=== PATIENT | female | born 1980 | race Caucasian/White ===

== ENCOUNTER 2021-01-05 15:28 | Outpatient (REF) | payer OTHER, SELFPAY | END 2021-01-05 15:29 | disposition home or self-care (01) | LOC: HO.LAB 15:28 | PROVIDERS: Visit Provider Internal Medicine | DX: Z12.4 Encounter for screening for malignant neoplasm of cervix (principal) | CPT/HCPCS: 88142 ==

== ENCOUNTER 2023-01-18 08:34 | Outpatient (REF) | payer OTHER, SELFPAY ==
--- NOTE | ~2023-01-18 | MM_ITS ---
EXAMINATION: MM SCREENING DIGITAL BREAST TOMOSYNTHESIS, BILATERAL CLINICAL INFORMATION: Screening. Asymptomatic. No prior breast imaging. Age 42. Family history breast cancer, maternal grandmother. The lifetime risk of breast cancer based on the Tyrer-Cuzick Model is 19.4%. COMPARISON: None (current study represents initial baseline exam). TECHNIQUE: Digital breast tomosynthesis is performed in both the craniocaudal and mediolateral oblique views along with computer-aided detection (CAD). Synthesized 2D images are generated from the tomosynthesis. FINDINGS: There are scattered areas of fibroglandular density (ACR BI-RADS breast composition Category b). Breast tissue composition borders on heterogeneously dense. There is no significant mass and no architectural abnormality. Incidental low left axillary tail node present on MLO view. The axilla and skin contours are unremarkable. No abnormal calcifications on right. There are a few punctate calcifications anterior upper left breast along with probable digital processing pseudo calcification artifact on the synthesized images. As this represents initial baseline exam, patient will be recalled for additional magnification views on the left to fully characterize. MM/MM tomosynthesis screening BI IMPRESSION: Left: -Calcifications versus pseudocalcification digital processing artifact anterior upper breast. Right: -No mammographic evidence of malignancy. ASSESSMENT: BI-RADS 0: Incomplete - Need Additional Imaging Evaluation RECOMMENDATION: 1. Additional views left breast (magnification CC, magnification ML). 2. Radiology department staff will contact the patient for additional imaging. This patient's information was entered into a reminder system with a target due date for their next mammogram.
== END 2023-01-18 08:35 | disposition home or self-care (01) ==
LOC: HO.MAMMO 08:34
PROVIDERS: PCP Internal Medicine; Visit Provider Internal Medicine
DX: Z12.31 Encounter for screening mammogram for malignant neoplasm of breast (principal)
CPT/HCPCS: 77063; 77067

== ENCOUNTER 2023-03-26 14:29 | Outpatient (REF) | payer OTHER, SELFPAY ==
--- NOTE | ~2023-03-26 | MM_ITS ---
EXAMINATION: MM DIAGNOSTIC DIGITAL MAMMOGRAPHY, left breast CLINICAL INFORMATION: Evaluate calcifications anterior superior left breast seen on baseline screening exam COMPARISON: Mammography: Baseline screening mammography 01/18/2023. TECHNIQUE: Digital mammography is performed in the following views: CC and medial lateral left-sided magnification views. FINDINGS: There are scattered areas of fibroglandular density (ACR BI-RADS breast composition Category b). On the left magnification views, a group of microcalcifications in the approximate 1:00 location, anterior depth, appear loosely grouped, and several appear to layer on the MLO projection, suggesting milk of calcium. These findings are probably benign. Six-month follow-up advised. Results are provided to the patient at time of visit by the technologist. MM/MM added views LT IMPRESSION: Probably benign milk of calcium anterior left breast 1:00 location, for which 6 month follow-up magnification views recommended. ASSESSMENT: BI-RADS BI-RADS 3 - Probably benign finding(s) - 6 month follow-up suggested RECOMMENDATION: 6 Month F/U This patient's information was entered into a reminder system with a target due date for their next mammogram.
== END 2023-03-26 14:30 | disposition home or self-care (01) ==
LOC: HO.MAMMO 14:29
PROVIDERS: PCP Internal Medicine; Visit Provider Internal Medicine
DX: R92.1 Mammographic calcification found on diagnostic imaging of breast (principal)
CPT/HCPCS: 77065

== ENCOUNTER → 2023-03-26 14:30 | Outpatient (BNV) | payer OTHER, SELFPAY | PROVIDERS: PCP Internal Medicine; Visit Provider Radiology Diagnostic Radiology | DX: R92.8 Other abnormal and inconclusive findings on diagnostic imaging of breast (principal) | CPT/HCPCS: 77061; 77065 ==

== ENCOUNTER 2023-10-13 14:54 | Outpatient (REF) | payer OTHER, SELFPAY ==
--- NOTE | ~2023-10-13 | MM_ITS ---
EXAMINATION: MM DIAGNOSTIC DIGITAL BREAST TOMOSYNTHESIS, LEFT CLINICAL INFORMATION: 6 month Follow-up probably benign left breast calcifications COMPARISON: Mammography: Bilateral mammography 01/18/2023, left diagnostic mammography 03/26/2023. TECHNIQUE: Digital left breast tomosynthesis is performed in both the craniocaudal and mediolateral oblique views along with computer-aided detection (CAD). Synthesized 2D images are generated from the tomosynthesis. In addition, 2-D spot magnification views in the left CC and ML projections were obtained. FINDINGS: There are scattered areas of fibroglandular density (ACR BI-RADS breast composition Category b). Redemonstration of a group of microcalcifications in the approximate 1:00 axis, anterior depth, of the left breast. On the ML projection, all of these calcifications appear to layer or teacup, and are consistent with benign milk of calcium. There are no suspicious calcifications identified. Otherwise, the parenchymal pattern is overall unchanged within the left breast. No masses, regions of architectural distortion, or new regions of calcifications are evident. There are no axillary or skin changes. MM/MM tomosynthesis diagnostic LT IMPRESSION: Calcifications in the upper left breast 1:00 axis, anterior one third, are benign consistent with benign milk of calcium. No further follow-up recommended. There are no findings in the left breast suspicious for malignancy. Recommend the patient return to routine annual bilateral screening in 6 months. ASSESSMENT: BI-RADS BI-RADS 2 - Benign Findings RECOMMENDATION: 1 year F/U Results were provided to the patient at time of visit by the technologist. This patient's information was entered into a reminder system with a target due date for their next mammogram.
== END 2023-10-13 14:55 | disposition home or self-care (01) ==
LOC: HO.MAMMO 14:54
PROVIDERS: PCP Internal Medicine; Visit Provider Internal Medicine
DX: R92.1 Mammographic calcification found on diagnostic imaging of breast (principal)
CPT/HCPCS: 77061; 77065

== ENCOUNTER → 2023-10-13 15:00 | Outpatient (BNV) | payer OTHER, SELFPAY | PROVIDERS: PCP Internal Medicine; Visit Provider Radiology Diagnostic Radiology | DX: R92.1 Mammographic calcification found on diagnostic imaging of breast (principal) | CPT/HCPCS: 77061; 77065 ==

== ENCOUNTER 2023-12-10 11:28 | Outpatient (AMB) | payer OTHER, SELFPAY ==
--- NOTE | 2023-12-10 11:54 | MHC.PC.OV ---
Vital Signs 12/10/23 11:55 Height 5 ft 7 in Weight 225 lb BMI 35.2 BP 100/66 Blood Pressure Location Lt brachial Position Sitting Pulse 84 Pulse Source Pulse Oximeter Pulse Oximetry (%) 99 Oxygen Delivery Method Room Air Intake Visit Reasons: PE Intake Note: Pt is here today for her PE Is last menstrual period known: Yes Last menstrual period: 12/02/23 Allergies No Known Allergies Allergy (Verified 12/10/23 11:56) Medication List - Last Reconciled 12/10/23 by Juana Moe MD semaglutide (weight loss) (Wegovy) 2.4 mg subcut QWEEK Tobacco use date assessed: 12/10/23 Dental Screening Dental Screen Date: 12/10/23 Did you have a dental visit in the last 12 months?: No Was dental information given to patient?: Patient has dentist HPI PE HPI Details Patient presents for a physical. She complains of discomfort during intercourse and while placing a tampon in for the last few months. Patient denies spotting after intercourse or vaginal discharge PFSH Medical History Annual physical exam Overweight Surgical History S/P cholecystectomy Family History Unknown Adopted Social History Household Members Other:: , 5 adult stepchildren ,works from home Housing: House Alcohol intake: current Alcohol intake frequency: holidays/special occasions only Patient Tobacco Use Status: Never used Tobacco e-Cigarette/Vaping Use: Never Used Current occupational status: employed Cognitive needs: No Hearing needs: No Vision needs: No Female Reproductive History Menstrual Date of last menstrual period: 12/02/23 Questionnaire PHQ-9 Over the last 2 weeks, how often have you been bothered by any of the following problems? 1. Little interest or pleasure in doing things: not at all 2. Feeling down, depressed, or hopeless: not at all 3. Trouble falling or staying asleep, or sleeping too much: not at all 4. Feeling tired or having little energy: not at all 5. Poor appetite or overeating: not at all 6. Feeling bad about yourself - or that you are a failure or have let yourself or your family down: not at all 7. Trouble concentrating on things, such as reading the newspaper or watching television: not at all 8. Moving or speaking so slowly that other people could have noticed. Or the opposite - being so fidgety or restless that you have been moving around a lot more than usual: not at all 9. Thoughts that you would be better off or of hurting yourself in some way: not at all Total score: 0 Depression Screening Interpretation: Negative Depression Screening Done: Yes [id number] - PHQ-9 Billing: Yes Source: Developed by Drs. Lionel Valles, Tashia Juarez, Adalberto Beckman and colleagues, with an educational flavia from [employer]. Thrive Questionnaire Date Thrive assessed: 12/10/23 I am a: Patient What is your living situation today?: I have a steady place to live Within the past 12 months, did the food you bought not last and you didn't have the money to get more?: Never true Within the past 12 months, did you worry whether your food would run out before you got money to buy more?: Never true Do you have trouble paying for medicines?: No Do you have trouble getting transportation to medical appointments?: No Do you have trouble paying your heating and electricity bill?: No Do you have trouble taking care of your child, family member or friend?: No Do you have trouble with day-to-day activities such as bathing, preparing meals, shopping, managing finances, etc.?: No Are you currently unemployed and looking for a job?: No Are you interested in more education?: No THRIVE Score: 0 AUDIT C Alcohol Use Questionnaire (AUDIT-C) 1. How often do you have a drink containing alcohol?: Monthly or less 2. How many drinks containing alcohol do you have on a typical day when you are drinking?: 1 or 2 3. How often do you have six or more drinks on one occasion?: Never Total Score: 1 NAZANIN-7 AMB Questionnaire NAZANIN-7 Date NAZANIN - 7 assessed: 12/10/23 Feeling nervous, anxious, or on edge: 0 = Not at all Not being able to stop or control worryin = Not at all Worrying too much about different things: 0 = Not at all Trouble relaxin = Not at all Being so restless that it is hard to sit still: 0 = Not at all Becoming easily annoyed or irritable: 0 = Not at all Feeling afraid as if something awful might happen: 0 = Not at all Total NAZANIN-7 score (0-4 normal; 5-9 mild; 10-14 moderate; 15-21 severe): 0 Source: Developed by Drs. Lionel Valles, Tashia Juarez, Adalberto Beckman and colleagues, with an educational flavia from [employer]. Review of Systems Const All systems reviewed & are unremarkable except as noted in HPI and below Eyes Reports no additional complaints ENT Reports no additional complaints Card Reports no additional complaints Resp Reports no additional complaints GI Reports no additional complaints Physical exam (Primary Care) Vital Signs: Last Vital Signs Pulse 84 12/10/23 11:55 BP 100/66 12/10/23 11:55 Pulse Ox 99 12/10/23 11:55 Oxygen Delivery Method Room Air 12/10/23 11:55 BMI result Body Mass Index 35.2 Tobacco/Smoking Status: Tobacco use Status Tobacco use date assessed 12/10/23 12/10/23 12:00 Patient Tobacco Use Status Never used Tobacco 12/10/23 12:00 e-Cigarette/Vaping Use Never Used 12/10/23 12:00 PHQ-9: PHQ-9 Score PHQ-9: Total score 0 12/10/23 12:23 Depression Screening Interpretation: Negative Thrive Assessment: Date of Thrive Assessment Date Thrive assessed 12/10/23 12/10/23 12:00 Const General: no acute distress HENMT Head: Yes normal to inspection Face and sinus: Yes normal facial exam Mouth: Normal oral and palatal mucosa present Eyes General: appearance normal, both eyes and all related structures Neck Neck: Yes no lymphadenopathy and Yes supple Resp Effort & Inspection: normal respiratory effort Auscultation: clear to auscultation bilaterally Cardio Rhythm: regular rhythm Heart sounds: S1 normal heart sound present and S2 normal heart sound present GI Inspection: Yes normal to inspection Palpation (GI): Soft to palpation Percussion: Yes normal to percussion Auscultation: normal bowel sounds Speculum Exam - Vagina: normal appearance of the vagina Speculum Exam - Cervix: normal appearance of the cervix Bimanual exam- vagina & uterus: normal bimanual exam Assessment and Plan Assessment & Plan (1) Annual physical exam: Code(s): Z00.00 - Encounter for general adult medical examination without abnormal findings Plan: Well-balanced diet regular physical activity weight loss discussed with the patient. She will return for fasting blood work. Patient is up-to-date with the mammogram. Pap smear was done and pelvic ultrasound will be obtained to evaluate for uterine fibroids/ovarian cysts Orders: Orders Comprehensive [place]. Panel Fast Today R10.2 - Pelvic and perineal pain, Z00.00 - Encounter for general adult medical examination without abnormal findings Lipid Panel Today R10.2 - Pelvic and perineal pain, Z00.00 - Encounter for general adult medical examination without abnormal findings UA w Microscopic Today R10.2 - Pelvic and perineal pain, Z00.00 - Encounter for general adult medical examination without abnormal findings US pelvic and transvaginal Today R10.2 - Pelvic and perineal pain, Z00.00 - Encounter for general adult medical examination without abnormal findings Pap Smear Today Z00.00 - Encounter for general adult medical examination without abnormal findings Complete Blood Count Auto Diff Today R10.2 - Pelvic and perineal pain, Z00.00 - Encounter for general adult medical examination without abnormal findings TSH reflex Free T4 Today R10.2 - Pelvic and perineal pain, Z00.00 - Encounter for general adult medical examination without abnormal findings Coding Level of Care Code Est Pt Prev Care 40-64y(86925) Diagnoses Annual physical exam Z00.00
[2023-12-10 11:55] VITALS: BP 100/66; PULSE 84; O2SAT 99; BMI 35.2
== END 2023-12-10 12:37 | disposition home or self-care (01) ==
PROVIDERS: PCP Internal Medicine; Visit Provider Internal Medicine
DX: Z00.00 Encounter for general adult medical examination without abnormal findings (principal)
CPT/HCPCS: 99396

== ENCOUNTER 2023-12-10 12:39 | Outpatient (REF) | payer OTHER, SELFPAY ==
[2023-12-16 06:49] LABS: HPV mRNA E6/E7 Not Detected (Not Detected)
== END 2023-12-10 12:40 | disposition home or self-care (01) ==
LOC: HO.LNP 12:39
PROVIDERS: Visit Provider Internal Medicine
DX: Z01.419 Encounter for gynecological examination (general) (routine) without abnormal findings (principal); R10.2 Pelvic and perineal pain
CPT/HCPCS: 87624; 88142

== ENCOUNTER 2023-12-23 13:11 | Outpatient (REF) | payer OTHER, SELFPAY ==
--- NOTE | ~2023-12-23 | US_ITS ---
EXAMINATION: US PELVIS CLINICAL INFORMATION: Pelvic pain, last menstrual period 12/02/2023. COMPARISON: None available. TECHNIQUE: Ultrasound of the pelvis is performed using both transabdominal and transvaginal transducers along with Doppler. Transvaginal imaging is performed due to inadequate visualization transabdominally. FINDINGS: Uterus is anteverted and measures 8.3 x 4.1 x 5.7 cm, volume 101.4 mm. Endometrial thickness is 10 mm. Trace amount of fluid within the endometrial cavity. Small amount of free fluid. Limited visualization of the bilateral ovaries due to bowel gas, body habitus and fibroid uterus. The ovaries were seen only on transabdominal ultrasound images. Right ovary measures 3.1 x 1.6 x 1.6 cm, volume 4.2 mL and left ovary 2.7 x 1.7 x 2.3 cm, volume 5.5 mL. 2.2 x 2.2 x 2.3 cm uterine mass characteristic of a fibroid. 1.4 x 1.6 x 1.4 cm uterine mass with echogenic foci characteristic of coarse calcifications with a uterine fibroid. 2.2 x 2.2 x 2.3 cm heterogeneous uterine mass characteristic of a fibroid. Visualization of uterus and endometrium are limited due to fibroids and bowel gas. US/US pelvic and transvaginal IMPRESSION: 1. Echogenic endometrium with thickness of 10 mm and possible trace amount of fluid within the endometrial cavity. 2. Uterine masses with an enlarged uterus, characteristic of fibroids. 3. Limited visualization of the bilateral ovaries.
== END 2023-12-23 13:12 | disposition home or self-care (01) ==
LOC: HO.US 13:11
PROVIDERS: PCP Internal Medicine; Visit Provider Internal Medicine
DX: R10.2 Pelvic and perineal pain (principal)
CPT/HCPCS: 76830; 76856

== ENCOUNTER 2024-03-16 07:27 | Outpatient (REF) | payer OTHER, SELFPAY ==
[2024-03-16 08:28] LABS: Hematocrit 39.6 % (37.0-47.0); Hemoglobin 13.4 g/dl (12.0-16.0); Mean Corpuscular HGB Conc 33.8 g/dl (31.0-35.0); Mean Corpuscular Volume 91.7 fL (80.0-98.0); Platelet Count 317 X10*3/uL (160-400); Red Blood Count 4.32 X10*6/uL (4.20-5.50); Red Cell Distribution Width 12.1 % (11.0-16.0); White Blood Count 7.1 X10*3/uL (4.8-10.8)
[2024-03-16 09:51] LABS: HCG Quantitative < 2 mIU/mL; TSH reflex Free T4 0.69 uIU/mL (0.32-4.0)
[2024-03-16 17:12] LABS: CT PCR NOT DETECTED (Not Detect.); NG PCR NOT DETECTED (Not Detect.)
[2024-03-17 08:13] LABS: Follicle Stimulating Hormone 4.5 mIU/mL; Lutenizing Hormone 3.9 mIU/mL; Prolactin 15.6 ng/mL
== END 2024-03-16 07:28 | disposition home or self-care (01) ==
LOC: HO.LAB 07:27
PROVIDERS: PCP Internal Medicine; Visit Provider Obstetrics & Gynecology
DX: N93.9 Abnormal uterine and vaginal bleeding, unspecified (principal); D25.9 Leiomyoma of uterus, unspecified
CPT/HCPCS: 36415; 83001; 83002; 84146; 84443; 84702; 85027; 87491; 87591

== ENCOUNTER 2024-03-16 07:27 | Outpatient (AMB) | payer OTHER, SELFPAY ==
[2024-03-16 07:33] VITALS: BP 118/68; BMI 35.2
--- NOTE | 2024-03-16 07:33 | A.OFFVIS_ITS ---
Vital Signs 03/16/24 07:33 Height 5 ft 7 in Weight 225 lb BMI 35.2 BP 118/68 Intake Visit Reasons: New patient Annual Intake Note: no concerns Scientific Advisor Required: No Information Interpreted: non-clinical & clinical President Ceo & Founder: President Ceo & Founder Present (Candis PRADO) Accompanied by: Self / Same As Patient Allergies No Known Allergies Allergy (Verified 03/16/24 07:40) Is last menstrual period known: Yes Last menstrual period: 02/17/24 HPI Comments Details: Presenting referred from PCP regarding myoma seen on recent pelvic ultrasound. The patient is complaining of heavy menstrual cycles associated passage of blood clots no pelvic pain and/ or pressure Last Pap/HPV was negative in 12/09 Last Mammogram was BI-RADS 2 in 10/11 Pelvic ultrasound done in 01/08 showed the following: Uterus is anteverted and measures 8.3 x 4.1 x 5.7 cm, volume 101.4 mm. Endometrial thickness is 10 mm. Trace amount of fluid within the endometrial cavity. Small amount of free fluid. Limited visualization of the bilateral ovaries due to bowel gas, body habitus and fibroid uterus. The ovaries were seen only on transabdominal ultrasound images. Right ovary measures 3.1 x 1.6 x 1.6 cm, volume 4.2 mL and left ovary 2.7 x 1.7 x 2.3 cm, volume 5.5 mL. 2.2 x 2.2 x 2.3 cm uterine mass characteristic of a fibroid. 1.4 x 1.6 x 1.4 cm uterine mass with echogenic foci characteristic of coarse calcifications with a uterine fibroid. 2.2 x 2.2 x 2.3 cm heterogeneous uterine mass characteristic of a fibroid. Visualization of uterus and endometrium are limited due to fibroids and bowel gas. [facility] Medical History Annual physical exam Overweight Surgical History S/P cholecystectomy Family History Unknown Adopted Social History Household Members Other:: , 5 adult stepchildren ,works from home Housing: House Alcohol intake: current Alcohol intake frequency: holidays/special occasions only Patient Tobacco Use Status: Never used Tobacco e-Cigarette/Vaping Use: Never Used Current occupational status: employed Cognitive needs: No Hearing needs: No Vision needs: No Female Reproductive History Menstrual Date of last menstrual period: 02/17/24 control method: none Total pregnancies: 0 Date of last pap smear: 12/12/23 Date of Mammogram: 01/18/23 Review of Systems Const All systems reviewed & are unremarkable except as noted in HPI and below Card Reports as per HPI Resp Reports as per HPI GI Reports as per HPI and Reports no additional complaints Reports as per HPI Physical Exam Vital Signs: Last Vital Signs BP 118/68 03/16/24 07:33 BMI result Body Mass Index 35.2 Const General: cooperative, healthy appearing and comfortable Chest Chest palpation & inspection: normal inspection of the chest and normal palpation of entire chest wall Breast/axilla inspection: normal inspection of the breasts and normal inspection of the axillae Breast/axilla palpation: normal palpation of the breasts, normal palpation of the axillae and no axillary lymphadenopathy Resp Effort & Inspection: normal respiratory effort Auscultation: clear to auscultation bilaterally Percussion: percussion normal Cardio Palpation: normal PMI Rate: regular rate Rhythm: regular rhythm Heart sounds: no murmurs and no rubs Peripheral pulses: Peripheral pulses 2+ throughout GI Inspection: Yes normal to inspection Palpation (GI): Soft to palpation, nontender, no guarding, not rigid and No hepatosplenomegaly present Percussion: Yes normal to percussion Auscultation: normal bowel sounds Rectal Exam - Female: deferred General: Yes bladder normal to palpation External Female Exam: No lesion Speculum Exam - Vagina: normal appearance of the vagina, normal palpation, normal vaginal discharge and not erythematous Speculum Exam - Cervix: normal appearance of the cervix and normal palpation Bimanual exam- vagina & uterus: normal bimanual exam, normal palpation, uterine size normal, bladder normal to palpation, consistency normal and normal palpation Bimanual Exam- Adnexa, other: normal adnexae, no masses and no tenderness Assessment & Plan Assessment & Plan (1) Abnormal uterine bleeding (AUB): Code(s): N93.9 - Abnormal uterine and vaginal bleeding, unspecified Category: Medical Plan: GC and chlamydia taken CBC, TSH, prolactin, FSH/LH HCG ordered. Discussed with the patient the different causes of abnormal bleeding including thyroid disorders, uterine and ovarian pathology, endometrial hyperplasia, carcinoma and other potential causes. Discussed with the patient the work up including CBC (to r/o anemia), TSH, prolactin, FSH/LH, endometrial biopsy to r/o endometrial pathology. All questions answered and the patient verbalized understanding. Instructed the patient to schedule an appointment for an endometrial biopsy in 2 weeks. (2) Uterine fibroid: Code(s): D25.9 - Leiomyoma of uterus, unspecified Category: Medical Plan: Discussed with the patient the results of the ultrasound and the size of the myomas. Discussed with the patient risk of myosarcoma and symptoms that are caused by myomas including but not limited to pelvic pain, pressure symptoms, abnormal uterine bleeding. In addition discussed with the patient options of treatment for myomas including: Serial ultrasounds periodically to follow-up on the size of the myoma while targeting the treatment against fibroids related symptoms ( control pills, Mirena IUD, progesterone treatment, GnRH agonist/antagonist, uterine artery embolization or endometrial ablation) versus surgical treatment including hysterectomy and or myomectomy. All pros and cons, risks and benefits of all options were discussed with the patient. The patient understands that delay in surgical treatment in case of myosarcoma can affect her prognosis, after further discussion, the patient decided to think about it and get back to us next visit Orders: Orders TSH reflex Free T4 Today N93.9 - Abnormal uterine and vaginal bleeding, unspecified Lutenizing Hormone Today N93.9 - Abnormal uterine and vaginal bleeding, unspecified Prolactin Today N93.9 - Abnormal uterine and vaginal bleeding, unspecified HCG Quantitative Today N93.9 - Abnormal uterine and vaginal bleeding, unspe cified Follicle Stimulating Hormone Today N93.9 - Abnormal uterine and vaginal bleeding, unspecified Complete Blood Count no Diff Today N93.9 - Abnormal uterine and vaginal bleeding, unspecified Coding Level of Care Code New Pt Level 3 (11906) Diagnoses Abnormal uterine bleeding (AUB) N93.9 Uterine fibroid D25.9
== END 2024-03-16 08:06 | disposition home or self-care (01) ==
PROVIDERS: PCP Internal Medicine; Visit Provider Obstetrics & Gynecology
DX: N93.9 Abnormal uterine and vaginal bleeding, unspecified (principal); D25.9 Leiomyoma of uterus, unspecified
CPT/HCPCS: 99203

== ENCOUNTER 2024-03-16 08:21 | Outpatient (REF) | payer OTHER, SELFPAY | END 2024-03-16 08:22 | disposition home or self-care (01) | LOC: HO.LNP 08:21 | PROVIDERS: Visit Provider Obstetrics & Gynecology | DX: Z13.89 Encounter for screening for other disorder (principal) ==

== ENCOUNTER 2024-04-28 07:25 | Outpatient (AMB) | payer OTHER, SELFPAY ==
[2024-04-28 07:25] VITALS: BP 122/84; BMI 35.2
--- NOTE | 2024-04-28 07:25 | A.OFFVIS_ITS ---
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 Information Interpreted: non-clinical & clinical Health Care Attorney: Health Care Attorney Present (Candis Perkins JOHAN) Accompanied by: Self / Same As Patient Allergies No Known Allergies Allergy (Verified 04/28/24 07:31) Is last menstrual period known: Yes Last menstrual period: 04/22/24 HPI Comments Details: Presenting for EMB [facility] Medical History Annual physical exam Overweight Surgical History S/P cholecystectomy Family History Unknown Adopted Social History Household Members Other:: , 5 adult stepchildren ,works from home Housing: House Alcohol intake: current Alcohol intake frequency: holidays/special occasions only Patient Tobacco Use Status: Never used Tobacco e-Cigarette/Vaping Use: Never Used Current occupational status: employed Cognitive needs: No Hearing needs: No Vision needs: No Female Reproductive History Menstrual Date of last menstrual period: 04/22/24 Review of Systems Const All systems reviewed & are unremarkable except as noted in HPI and below Reports as per HPI and Reports no additional complaints GI Reports no additional complaints Reports no additional complaints Physical Exam Vital Signs: Last Vital Signs BP 122/84 04/28/24 07:25 BMI result Body Mass Index 35.2 Office Procedures Endometrial Biopsy Details: The patient was counseled regarding the indication and benefits of endometrial sampling to rule out endometrial pathology including not limited to endometrial hyperplasia or endometrial cancer and others; The alternatives (Either do nothing vs. hysteroscopy D&C) & the risks were discussed with the patient including but not limited: pain, uterine perforation, bleeding, infection, possible injury to bladder, bowel, ureter, possible need for blood transfusion with all its possible risks. The patient verbalized understanding all questions answered and signed consent. Urine test done in the office was negative The patient was placed into the dorsal lithotomy position; a speculum was inserted in the vagina. Using aseptic technique for the procedure, the cervix was cleansed with Betadine. The anterior lip of the cervix was grasped with a single tooth tenaculum. The uterus was sounded to 7 cm with a 4 mm Pipelle was used. Tissues samples were obtained and placed in formalin, in a patient labeled container and sent to the pathology department. At the end of the procedure, there was minimal bleeding noted The patient tolerated the procedure well and was discharged in good condition with the following instructions: Nothing in the vagina until the bleeding stops. No sex until the bleeding stops, to call if any of the following occurs: fever (>100.4), flu-like symptoms, abdominal pain, heavy bleeding, four smelling vaginal discharge. The patient was instructed to schedule a Follow up appointment in 2 weeks to discuss pathology results of the biopsy and treatment options. This note was generated with a voice recognition program. Some errors may have been overlooked during the review of this note. Sometimes these errors may affect the content or meaning of a given sentence. [address]-[place] Biopsy Results AMB Test Urine AMB Test Urine Negative Last Edit by Candis Perkins CMA on 07:33 Assessment & Plan Assessment & Plan (1) Abnormal uterine bleeding (AUB): Code(s): N93.9 - Abnormal uterine and vaginal bleeding, unspecified Category: Medical Plan: EMB done, see procedure Orders: Orders AMB HCG Urine Test Today Z32.02 - Encounter for test, result negative AMB Endometrial Biopsy Today N93.9 - Abnormal uterine and vaginal bleeding, unspecified Coding Level of Care Code Procedure Only Diagnoses Abnormal uterine bleeding (AUB) N93.9 CPT Codes Endometrial Biopsy - CPT: 20981-Nrtymtualme Biopsy ([id number])
== END 2024-04-28 07:50 | disposition home or self-care (01) ==
LOC: HO.HWS 07:25
PROVIDERS: PCP Internal Medicine; Visit Provider Obstetrics & Gynecology
DX: N93.9 Abnormal uterine and vaginal bleeding, unspecified (principal); Z32.02 Encounter for pregnancy test, result negative
CPT/HCPCS: 58100

== ENCOUNTER 2024-04-28 07:25 | Outpatient (REF) | payer OTHER, SELFPAY | END 2024-04-28 07:26 | disposition home or self-care (01) | LOC: HO.LNP 07:25 | PROVIDERS: PCP Internal Medicine; Visit Provider Obstetrics & Gynecology | DX: N93.9 Abnormal uterine and vaginal bleeding, unspecified (principal); Z32.02 Encounter for pregnancy test, result negative | CPT/HCPCS: 58100; 81025; 88305 ==

== ENCOUNTER 2024-06-15 07:57 | Outpatient (AMB) | payer OTHER, SELFPAY ==
[2024-06-15 07:58] VITALS: BP 110/76; BMI 35.1
--- NOTE | 2024-06-15 07:58 | A.OFFVIS_ITS ---
Vital Signs 06/15/24 07:58 Height 5 ft 7 in Weight 224 lb BMI 35.1 BP 110/76 Blood Pressure Location Lt brachial Position Sitting Intake Visit Reasons: EMB results Allergies No Known Allergies Allergy (Verified 06/15/24 07:58) HPI Comments Details: The patient is presenting for follow-up to discuss the results of her abnormal uterine bleeding workup and options of treatment. The following workup was done.: H&H=13.4/39.6 TSH, hCG, prolactin, GC and chlamydia were negative. Endometrial biopsy pathology showed the following: Endometrium, biopsy: Benign weakly proliferative endometrium with focal breakdown, and benign endocervical glandular and scant squamous epithelium; no atypia or carcinoma. Mammogram was done in 10/11 was BI-RADS 2 Pelvic ultrasound showed the following: Uterus is anteverted and measures 8.3 x 4.1 x 5.7 cm, volume 101.4 mm. Endometrial thickness is 10 mm. Trace amount of fluid within the endometrial cavity. Small amount of free fluid. Limited visualization of the bilateral ovaries due to bowel gas, body habitus and fibroid uterus. The ovaries were seen only on transabdominal ultrasound images. Right ovary measures 3.1 x 1.6 x 1.6 cm, volume 4.2 mL and left ovary 2.7 x 1.7 x 2.3 cm, volume 5.5 mL. 2.2 x 2.2 x 2.3 cm uterine mass characteristic of a fibroid. 1.4 x 1.6 x 1.4 cm uterine mass with echogenic foci characteristic of coarse calcifications with a uterine fibroid. 2.2 x 2.2 x 2.3 cm heterogeneous uterine mass characteristic of a fibroid. Visualization of uterus and endometrium are limited due to fibroids and bowel gas. [facility] Medical History Annual physical exam Overweight Surgical History S/P cholecystectomy Family History Unknown Adopted Social History Household Members Other:: , 5 adult stepchildren ,works from home Housing: House Alcohol intake: current Alcohol intake frequency: holidays/special occasions only Patient Tobacco Use Status: Never used Tobacco e-Cigarette/Vaping Use: Never Used Current occupational status: employed Cognitive needs: No Hearing needs: No Vision needs: No Review of Systems Const All systems reviewed & are unremarkable except as noted in HPI and below Reports as per HPI and Reports no additional complaints GI Reports no additional complaints Reports no additional complaints Physical Exam Vital Signs: Last Vital Signs BP 110/76 06/15/24 07:58 BMI result Body Mass Index 35.1 Assessment & Plan Assessment & Plan (1) Abnormal uterine bleeding (AUB): Comment: Uterine myomas Code(s): N93.9 - Abnormal uterine and vaginal bleeding, unspecified Category: Medical Plan: Discussed with the patient the results of the ultrasound and the size of the myomas. Discussed with the patient risk of myosarcoma and symptoms that are caused by myomas including but not limited to pelvic pain, pressure symptoms, abnormal uterine bleeding. In addition discussed with the patient options of treatment for myomas including: Serial ultrasounds periodically to follow-up on the size of the myoma while targeting the treatment against fibroids related symptoms ( control pills, Mirena IUD, progesterone treatment, GnRH agonist/antagonist, uterine artery embolization or endometrial ablation) versus surgical treatment including hysterectomy and or myomectomy. All pros and cons, risks and benefits of all options were discussed with the patient. The patient understands that delay in surgical treatment in case of myosarcoma can affect her prognosis, after further discussion, the patient decided to proceed with expectant management (2) Uterine fibroid: Code(s): D25.9 - Leiomyoma of uterus, unspecified Category: Medical Plan: Discussed with the patient the findings on pelvic ultrasound & the risk of myosarcoma; discussed with the patient the options of treatment including expectant management versus hysterectomy; the pros and cons, risks benefits of each approach were discussed with the patient including the fact that in cases of myosarcoma, surgical treatment can lead to early diagnosis and positively affects the prognosis; after further discussion, the patient decided to proceed with expectant management. Will repeat pelvic ultrasound periodically. Instructions given to patient to call in case any of the following occurs: pressure symptoms, abnormal uterine bleeding, pelvic pain; and to schedule a six-months pelvic ultrasound and a follow-up appointment . All questions answered, the patient verbalized understanding and agreed with the plan . Orders: Orders US pelvic and transvaginal 6 Months D25.9 - Leiomyoma of uterus, unspecified Coding Level of Care Code Est Pt Level 3 (47534) Diagnoses Abnormal uterine bleeding (AUB) N93.9 Uterine fibroid D25.9
== END 2024-06-15 08:26 | disposition home or self-care (01) ==
PROVIDERS: PCP Internal Medicine; Visit Provider Obstetrics & Gynecology
DX: N93.9 Abnormal uterine and vaginal bleeding, unspecified (principal); D25.9 Leiomyoma of uterus, unspecified
CPT/HCPCS: 99213

== ENCOUNTER → 2024-06-15 07:57 | Outpatient (BNVA) | payer OTHER, SELFPAY | PROVIDERS: PCP Internal Medicine; Visit Provider Obstetrics & Gynecology ==

== ENCOUNTER 2024-11-02 11:28 | Outpatient (AMB) | payer OTHER, SELFPAY ==
[2024-11-02 11:30] VITALS: BP 118/70; PULSE 90; RESP 20; TEMP 36.7; O2SAT 98; BMI 35.5
--- NOTE | 2024-11-02 11:30 | MHC.PC.OV ---
Vital Signs 11/02/24 11:30 Height 5 ft 7 in Weight 227 lb BMI 35.5 BP 118/70 Blood Pressure Location Lt brachial Position Sitting Respiration 20 Pulse 90 Pulse Source Pulse Oximeter Temp 98.1 F Temp Source Oral Pulse Oximetry (%) 98 Oxygen Delivery Method Room Air Intake Visit Reasons: Panic attacks Intake Note: Pt is here today for a sick visit. Pt c/o panic attacks. Allergies No Known Allergies Allergy (Verified 11/02/24 11:31) Medication List - Last Reconciled 11/02/24 by Juana Moe MD semaglutide (weight loss) (Wegovy) 2.4 mg subcut QWEEK Tobacco use date assessed: 11/02/24 Dental Screening Dental Screen Date: 11/02/24 Did you have a dental visit in the last 12 months?: Yes Did you have a dental problem in the last 6 months where you did not have access to dental care?: No Was dental information given to patient?: Patient has dentist HPI Panic attacks HPI Details Patient presents complaining of increasing anxiety due to stress at work and and family difficulties worse over last 2 weeks. Patient has been getting panic attacks and went to the ER. Patient has not been able to work for the last 2 weeks. She reports insomnia poor appetite but denies suicide ideation. She had similar episode 20 years ago which resolved with a counseling. Patient is started counseling at work. [facility] Medical History (Updated 11/02/24 @ 15:45 by Juana Moe MD) Annual physical exam Overweight Surgical History S/P cholecystectomy Family History Unknown Adopted Social History Household Members Other:: , 5 adult stepchildren ,works from home Housing: House Alcohol intake: current Alcohol intake frequency: holidays/special occasions only Patient Tobacco Use Status: Never used Tobacco e-Cigarette/Vaping Use: Never Used service: No Current occupational status: employed Cognitive needs: No Hearing needs: No Vision needs: No Questionnaire PHQ-9 Over the last 2 weeks, how often have you been bothered by any of the following problems? 1. Little interest or pleasure in doing things: nearly every day 2. Feeling down, depressed, or hopeless: nearly every day 3. Trouble falling or staying asleep, or sleeping too much: nearly every day 4. Feeling tired or having little energy: nearly every day 5. Poor appetite or overeating: nearly every day 6. Feeling bad about yourself - or that you are a failure or have let yourself or your family down: several days 7. Trouble concentrating on things, such as reading the newspaper or watching television: more than half the days 8. Moving or speaking so slowly that other people could have noticed. Or the opposite - being so fidgety or restless that you have been moving around a lot more than usual: several days 9. Thoughts that you would be better off or of hurting yourself in some way: not at all Total score: 19 Depression Screening Interpretation: Positive Depression Screening Done: Yes 42410 - PHQ-9 Billing: Yes Source: Developed by Drs. Lionel Valles, Tashia Juarez, Adalberto Beckman and colleagues, with an educational flavia from [employer]. Thrive Questionnaire Date Thrive assessed: 11/02/24 I am a: Patient What is your living situation today?: I have a steady place to live Within the past 12 months, did the food you bought not last and you didn't have the money to get more?: Never true Within the past 12 months, did you worry whether your food would run out before you got money to buy more?: Never true Do you have trouble paying for medicines?: No Do you have trouble getting transportation to medical appointments?: No Do you have trouble paying your heating and electricity bill?: No Do you have trouble taking care of your child, family member or friend?: No Do you have trouble with day-to-day activities such as bathing, preparing meals, shopping, managing finances, etc.?: No Are you currently unemployed and looking for a job?: No Are you interested in more education?: No Please select the resources that you would like help with: None Currently or been in a relationship where the following occur: No concerns reported THRIVE Score: 0 AUDIT C Alcohol Use Questionnaire (AUDIT-C) 1. How often do you have a drink containing alcohol?: Monthly or less 2. How many drinks containing alcohol do you have on a typical day when you are drinking?: 1 or 2 3. How often do you have six or more drinks on one occasion?: Never Total Score: 1 NAZANIN-7 AMB Questionnaire NAZANIN-7 Date NAZANIN - 7 assessed: 11/02/24 Feeling nervous, anxious, or on edge: 3 = Nearly every day Not being able to stop or control worryin = Nearly every day Worrying too much about different things: 3 = Nearly every day Trouble relaxin = Nearly every day Being so restless that it is hard to sit still: 1 = Several days Becoming easily annoyed or irritable: 0 = Not at all Feeling afraid as if something awful might happen: 2 = More than half the days Total NAZANIN-7 score (0-4 normal; 5-9 mild; 10-14 moderate; 15-21 severe): 15 Source: Developed by Drs. Lionel Valles, Tashia Juarez, Adalberto Beckman and colleagues, with an educational flavia from [employer]. NAZANIN-7 Assessment Billing NAZANIN-7 Assessment Tool: NAZANIN-7 Assessment 96973 Review of Systems Const All systems reviewed & are unremarkable except as noted in HPI and below Eyes Reports no additional complaints ENT Reports no additional complaints Card Reports no additional complaints Resp Reports no additional complaints GI Reports no additional complaints Physical exam (Primary Care) Vital Signs: Last Vital Signs Temp 98.1 F 11/02/24 11:30 Pulse 90 11/02/24 11:30 Resp 20 11/02/24 11:30 BP 118/70 11/02/24 11:30 Pulse Ox 98 11/02/24 11:30 Oxygen Delivery Method Room Air 11/02/24 11:30 BMI result Body Mass Index 35.5 Tobacco/Smoking Status: Tobacco use Status Tobacco use date assessed 11/02/24 11/02/24 11:31 Patient Tobacco Use Status Never used Tobacco 11/02/24 11:31 e-Cigarette/Vaping Use Never Used 11/02/24 11:31 PHQ-9: PHQ-9 Score PHQ-9: Total score 19 11/02/24 11:31 Depression Screening Interpretation: Positive Thrive Assessment: Date of Thrive Assessment Date Thrive assessed 11/02/24 11/02/24 11:31 Currently or been in a relationship where the following occur: No concerns reported Const General: no acute distress HENMT Mouth: Normal oral and palatal mucosa present Resp Effort & Inspection: normal respiratory effort Auscultation: clear to auscultation bilaterally Cardio Rhythm: regular rhythm Heart sounds: S1 normal heart sound present and S2 normal heart sound present Coding Level of Care Code Est Pt Level 3 (97451) Diagnoses Anxiety F41.9 Additional Codes NAZANIN-7 Assessment Billing - NAZANIN-7 Assessment Tool: NAZANIN-7 Assessment 03173 ([id number]) PHQ-9 - 99586 - PHQ-9 Billing: Yes ([id number]) Assessment & Plan Assessment & Plan (1) Anxiety: Code(s): F41.9 - Anxiety disorder, unspecified Category: Medical Plan: Stress management mindfulness counseling recommended to the patient. She is not interested in taking long-term medications. Hydroxyzine 25 q.h.s. prn is prescribed. Patient will be out of work from October 19 until December 05 she will follow-up in 1 month or p.r.n. Medications: New hydroxyzine HCl 25 mg PO BEDTIME 10 tabs 0RF
== END 2024-11-02 13:32 | disposition home or self-care (01) ==
LOC: HO.HMCC 11:29
PROVIDERS: PCP Internal Medicine; Visit Provider Internal Medicine
DX: F41.9 Anxiety disorder, unspecified (principal)

== ENCOUNTER → 2024-11-02 11:28 | Outpatient (BNVA) | payer OTHER, SELFPAY | PROVIDERS: PCP Internal Medicine; Visit Provider Internal Medicine | DX: F41.9 Anxiety disorder, unspecified (principal) | CPT/HCPCS: 96127 ==

== ENCOUNTER 2024-11-16 13:21 | Outpatient (REF) | payer OTHER, SELFPAY ==
--- NOTE | ~2024-11-16 | US_ITS ---
EXAMINATION: US PELVIS TRANSABDOMINAL AND TRANSVAGINAL HISTORY: D25.9 - Leiomyoma of uterus, unspecified COMPARISON: Comparison is made with the prior examination dated 12/23/2023. TECHNIQUE: Transabdominal and endovaginal real-time 2D carney-scale ultrasound was performed. FINDINGS: Uterus: The uterus is normal in size, measuring 8.7 x 5.5 x 6.6 cm. Myometrium has a normal echotexture. Multiple anterior fibroids are again noted measuring 3.1 x 2.4 x 2.8 cm (previously 2.2 x 2.2 x 2.3 cm), 2.6 x 1.8 x 2.2 cm (previously 0.9 x 1.0 x 0.8 cm), and 1.5 x 1.5 x 1.7 cm (previously 1.4 x 1.6 x 1.4 cm). An additional 1.1 x 0.7 x 1.0 cm anterior fibroid is noted which was not seen previously. Endometrium: The endometrial stripe measures 12 mm in thickness. Right ovary: The right ovary measures 2.6 x 1.7 x 1.9 cm. The right ovary is normal in size and echotexture. Left ovary: The left ovary measures 2.0 x 1.5 x 1.6 cm. The left ovary is normal in size and echotexture. Pelvic fluid: none. US/US pelvic and transvaginal IMPRESSION: Fibroid uterus with interval enlargement of fibroids as described above. Electronically signed by: Lionel Woodard MD 11/17/2024 07:18 AM EDT
== END 2024-11-16 13:22 | disposition home or self-care (01) ==
LOC: HO.HMGCX 13:21
PROVIDERS: PCP Internal Medicine; Visit Provider Obstetrics & Gynecology
DX: D25.9 Leiomyoma of uterus, unspecified (principal)
CPT/HCPCS: 76830; 76856

== ENCOUNTER → 2024-11-16 13:35 | Outpatient (BNV) | payer OTHER, SELFPAY | PROVIDERS: PCP Internal Medicine; Visit Provider Radiology Diagnostic Radiology | DX: D25.9 Leiomyoma of uterus, unspecified (principal) | CPT/HCPCS: 76830; 76856 ==

== ENCOUNTER 2025-01-04 07:58 | Outpatient (AMB) | payer OTHER, SELFPAY ==
[2025-01-04 08:06] VITALS: BP 108/68; PULSE 87; RESP 18; O2SAT 99; BMI 35.1
--- NOTE | 2025-01-04 08:06 | A.OFFPC_ITS ---
Vital Signs 01/04/25 08:06 Height 5 ft 7 in Weight 224 lb BMI 35.1 BP 108/68 Blood Pressure Location Lt brachial Position Sitting Respiration 18 Pulse 87 Pulse Source Pulse Oximeter Pulse Oximetry (%) 99 Oxygen Delivery Method Room Air Intake Visit Reasons: PE Intake Note: Pt is here today for PE. Allergies No Known Allergies Allergy (Verified 01/04/25 08:06) Medication List - Last Reconciled 01/04/25 by Juana Moe MD semaglutide (weight loss) (Wegovy) 2.4 mg subcut QWEEK Tobacco use date assessed: 01/04/25 Dental Screening Dental Screen Date: 11/02/24 HPI PE HPI Details Pt presents for PE. She has been on Wegovy for the last 2 years through weight watchers program and has been maintaining the weight after initial weight loss 2 years ago. Patient has been decreasing caloric intake and exercising regularly. She is interested in trying a different GLP 1 agonist if it is covered by her insurance [facility] Medical History (Updated 01/04/25 @ 12:48 by Juana Moe MD) Uterine fibroid Annual physical exam Overweight Surgical History S/P cholecystectomy Family History Unknown Adopted Social History Household Members Other:: , 5 adult stepchildren ,works from home Housing: House Alcohol intake: current Alcohol intake frequency: holidays/special occasions only Patient Tobacco Use Status: Never used Tobacco e-Cigarette/Vaping Use: Never Used service: No Current occupational status: employed Cognitive needs: No Hearing needs: No Vision needs: No Questionnaire PHQ-9 Over the last 2 weeks, how often have you been bothered by any of the following problems? 1. Little interest or pleasure in doing things: not at all 2. Feeling down, depressed, or hopeless: not at all 3. Trouble falling or staying asleep, or sleeping too much: not at all 4. Feeling tired or having little energy: not at all 5. Poor appetite or overeating: not at all 6. Feeling bad about yourself - or that you are a failure or have let yourself or your family down: not at all 7. Trouble concentrating on things, such as reading the newspaper or watching television: not at all 8. Moving or speaking so slowly that other people could have noticed. Or the opposite - being so fidgety or restless that you have been moving around a lot more than usual: not at all 9. Thoughts that you would be better off or of hurting yourself in some way: not at all Total score: 0 Depression Screening Interpretation: Negative Depression Screening Done: Yes 16212 - PHQ-9 Billing: Yes Source: Developed by Drs. Lionel Valles, Tashia Juarez, Adalberto Beckman and colleagues, with an educational flavia from [employer]. Thrive Questionnaire Date Thrive assessed: 10/30/24 I am a: Patient What is your living situation today?: I have a steady place to live Within the past 12 months, did the food you bought not last and you didn't have the money to get more?: Never true Within the past 12 months, did you worry whether your food would run out before you got money to buy more?: Never true Do you have trouble paying for medicines?: No Do you have trouble getting transportation to medical appointments?: No Do you have trouble paying your heating and electricity bill?: No Do you have trouble taking care of your child, family member or friend?: No Do you have trouble with day-to-day activities such as bathing, preparing meals, shopping, managing finances, etc.?: No Are you currently unemployed and looking for a job?: No Are you interested in more education?: No Please select the resources that you would like help with: None Currently or been in a relationship where the following occur: No concerns reported THRIVE Score: 0 NAZANIN-7 AMB Questionnaire NAZANIN-7 Date NAZANIN - 7 assessed: 01/04/25 Feeling nervous, anxious, or on edge: 0 = Not at all Not being able to stop or control worryin = Not at all Worrying too much about different things: 0 = Not at all Trouble relaxin = Not at all Being so restless that it is hard to sit still: 0 = Not at all Becoming easily annoyed or irritable: 0 = Not at all Feeling afraid as if something awful might happen: 0 = Not at all Total NAZANIN-7 score (0-4 normal; 5-9 mild; 10-14 moderate; 15-21 severe): 0 Source: Developed by Drs. Lionel Valles, Tashia Juarez, Adalberto Beckman and colleagues, with an educational flavia from [employer]. NAZANIN-7 Assessment Billing NAZANIN-7 Assessment Tool: NAZANIN-7 Assessment 37071 Review of Systems Const All systems reviewed & are unremarkable except as noted in HPI and below Eyes Reports no additional complaints ENT Reports no additional complaints Card Reports no additional complaints Resp Reports no additional complaints GI Reports no additional complaints Reports no additional complaints Physical exam (Primary Care) Vital Signs: Last Vital Signs Pulse 87 01/04/25 08:06 Resp 18 01/04/25 08:06 BP 108/68 01/04/25 08:06 Pulse Ox 99 01/04/25 08:06 Oxygen Delivery Method Room Air 01/04/25 08:06 BMI result Body Mass Index 35.1 Tobacco/Smoking Status: Tobacco use Status Tobacco use date assessed 01/04/25 01/04/25 08:12 Patient Tobacco Use Status Never used Tobacco 01/04/25 08:12 e-Cigarette/Vaping Use Never Used 01/04/25 08:12 PHQ-9: PHQ-9 Score PHQ-9: Total score 0 01/04/25 10:43 Depression Screening Interpretation: Negative Thrive Assessment: Date of Thrive Assessment Date Thrive assessed 10/30/24 01/04/25 08:12 Currently or been in a relationship where the following occur: No concerns reported Const General: no acute distress HENMT Head: Yes normal to inspection Face and sinus: Yes normal facial exam Throat: Yes posterior oropharynx normal Neck Neck: Yes no lymphadenopathy and Yes supple Resp Effort & Inspection: normal respiratory effort Auscultation: clear to auscultation bilaterally Cardio Rhythm: regular rhythm Heart sounds: S1 normal heart sound present and S2 normal heart sound present GI Inspection: Yes normal to inspection Palpation (GI): Soft to palpation Percussion: Yes normal to percussion Auscultation: normal bowel sounds Coding Level of Care Code Est Pt Prev Care 40-64y(86892) Diagnoses Annual physical exam Z00.00 Overweight E66.3 Additional Codes NAZANIN-7 Assessment Billing - NAZANIN-7 Assessment Tool: NAZANIN-7 Assessment 74578 ([id number]) PHQ-9 - 53415 - PHQ-9 Billing: Yes ([id number]) Assessment & Plan Assessment & Plan (1) Annual physical exam: Code(s): Z00.00 - Encounter for general adult medical examination without abnormal f indings Category: Medical Plan: Well-balanced diet regular physical activity discussed with the patient. She is up-to-date with the mammogram and Pap smear by entrepreneurship program director. Patient will be referred to GI for colonoscopy. (2) Overweight: Comment: in [facility] weight management, S/P sleeve gastrectomy 04/08 , on Wegov Code(s): E66.3 - Overweight Category: Medical Plan: Patient will check with the insurance coverage for GLP 1 agonist. Decreasing caloric intake increasing physical activity discussed with the patient Orders: Orders Complete Blood Count Auto Diff Today Z00.00 - Encounter for general adult medical examination without abnormal findings TSH reflex Free T4 Today Z00.00 - Encounter for general adult medical examination without abnormal findings Lipid Panel 1 Year Z00.00 - Encounter for general adult medical examination without abnormal findings Complete Blood Count Auto Diff 1 Year Z00.00 - Encounter for general adult medical examination without abnormal findings Vitamin D 25-OH Total 1 Year Z00.00 - Encounter for general adult medical examination without abnormal findings Comprehensive [place]. Panel Fast Today Z00.00 - Encounter for general adult medical examination without abnormal findings Lipid Panel Today Z00.00 - Encounter for general adult medical examination without abnormal findings Vitamin D 25-OH Total Today Z00.00 - Encounter for general adult medical examination without abnormal findings UA w Microscopic Today Z00.00 - Encounter for general adult medical examination without abnormal findings Comprehensive [place]. Panel Fast 1 Year Z00.00 - Encounter for general adult medical examination without abnormal findings Referrals Gastroenterology Referral Z00.00 - Encounter for general adult medical examination without abnormal findings
== END 2025-01-04 10:56 | disposition home or self-care (01) ==
LOC: HO.HMCC 07:59
PROVIDERS: PCP Internal Medicine; Visit Provider Internal Medicine
DX: Z00.00 Encounter for general adult medical examination without abnormal findings (principal); E66.3 Overweight

== ENCOUNTER → 2025-01-04 07:58 | Outpatient (BNVA) | payer OTHER, SELFPAY | PROVIDERS: PCP Internal Medicine; Visit Provider Internal Medicine | DX: Z00.00 Encounter for general adult medical examination without abnormal findings (principal); E66.3 Overweight; Z68.35 Body mass index [BMI] 35.0-35.9, adult | CPT/HCPCS: 96127 ==

== ENCOUNTER 2025-01-31 13:42 | Outpatient (AMB) | payer OTHER, SELFPAY ==
--- NOTE | 2025-01-31 13:42 | MHC.OFFVIS ---
Intake Visit Reasons: U/S follow up Allergies No Known Allergies Allergy (Verified 01/04/25 08:06) HPI Comments Details: The patient is scheduled a telehealth visit for ultrasound follow-up . The patient has been complaining of more pressure during intercourse from the fibroids. Pelvic ultrasound done on 11/17/2024 which showed the following: Uterus: The uterus is normal in size, measuring 8.7 x 5.5 x 6.6 cm. Myometrium has a normal echotexture. Multiple anterior fibroids are again noted measuring 3.1 x 2.4 x 2.8 cm (previously 2.2 x 2.2 x 2.3 cm), 2.6 x 1.8 x 2.2 cm (previously 0.9 x 1.0 x 0.8 cm), and 1.5 x 1.5 x 1.7 cm (previously 1.4 x 1.6 x 1.4 cm). An additional 1.1 x 0.7 x 1.0 cm anterior fibroid is noted which was not seen previously. Endometrium: The endometrial stripe measures 12 mm in thickness. Right ovary: The right ovary measures 2.6 x 1.7 x 1.9 cm. The right ovary is normal in size and echotexture. Left ovary: The left ovary measures 2.0 x 1.5 x 1.6 cm. The left ovary is normal in size and echotexture. Pelvic fluid: none. US/US pelvic and transvaginal IMPRESSION: Fibroid uterus with interval enlargement of fibroids as described above. Last co testing in 12/09 was negative EMB done in 05/11 showed the following: Benign weakly proliferative endometrium with focal breakdown, and benign endocervical glandular and scant squamous epithelium; no atypia or carcinoma [facility] Medical History Uterine fibroid Annual physical exam Overweight Surgical History S/P cholecystectomy Family History Unknown Adopted Social History Household Members Other:: , 5 adult stepchildren ,works from home Housing: House Alcohol intake: current Alcohol intake frequency: holidays/special occasions only Patient Tobacco Use Status: Never used Tobacco e-Cigarette/Vaping Use: Never Used service: No Current occupational status: employed Cognitive needs: No Hearing needs: No Vision needs: No Review of Systems Const All systems reviewed & are unremarkable except as noted in HPI and below Reports as per HPI and Reports no additional complaints GI Reports no additional complaints Reports no additional complaints Telehealth Telehealth Telehealth Platform: [employer] Location of provider rendering services: practice address Location of patient: address on file Patient Identification confirmed using: Name, : Yes Telehealth method: video Patient verbally consented to treatment: Yes Patient verbally consented to billing insurance company: Yes Patient informed of any privacy concerns related to visit: Yes Minutes spent on Phone/Video with Pt.: 9 Assessment & Plan Assessment & Plan (1) Uterine fibroid: Code(s): D25.9 - Leiomyoma of uterus, unspecified Category: Medical Plan: Discussed with the patient the findings on pelvic ultrasound & the risk of myosarcoma; in addition reviewed with the patient that malignancy and pre malignancy cannot be ruled out without hysterectomy for pathological evaluation ; furthermore, explained to the patient the limitation of pelvic ultrasound and endometrial biopsy in the setting. Discussed with the patient the typical symptoms that are caused by myomas including but not limited to pelvic pain, pressure symptoms, abnormal uterine bleeding. In addition discussed with the patient options of treatment for myomas including: Serial ultrasounds periodically to follow-up on the size of the myoma while targeting the treatment against fibroids related symptoms ( control pills, Mirena IUD, progesterone treatment, GnRH agonist/antagonist, uterine artery embolization or endometrial ablation) versus surgical treatment including hysterectomy and or myomectomy. All pros and cons, risks and benefits of all options were discussed with the patient. The patient understands that delay in surgical treatment in case of myosarcoma can affect her prognosis, after further discussion, the patient decided to proceed with definitive surgical management, hysterectomy. Discussed with the patient the different types of hysterectomies including, vaginal, laparoscopic assisted vaginal, robotic assisted laparoscopic,& abdominal . All pros, cons, r/b of each approach were discussed the patient including evidence that morbidity is less and recovery is shorter with minimally invasive approaches to hysterectomy. Discussed with the patient the lack of availability of the robot DaVinci robot and/or minimally invasive paper and pulp mill operator specialist at [facility]. Will refer to [facility] minimally invasive automotive engineering technician surgery. Instructed the patient to call our office back in case a referral appointment is not scheduled, missed or canceled so that we will assist on rescheduling another appointment, the patient verbalized understanding agreed with the plan. I spent a total of 20 minutes reviewing the chart, talking to the patient via video and documenting in the medical record. Coding Level of Care Code Tele Est Pt Level 3 (73291) Diagnoses Uterine fibroid D25.9
== END 2025-01-31 14:09 | disposition home or self-care (01) ==
LOC: HO.HWS 13:42
PROVIDERS: PCP Internal Medicine; Visit Provider Obstetrics & Gynecology
DX: D25.9 Leiomyoma of uterus, unspecified (principal)
CPT/HCPCS: 99213